=== PATIENT | female | born 1995 | race African-American/Black ===

== ENCOUNTER 2018-06-06 11:24 | Emergency (ER) | payer OTHER ==
[~2018-06-06] VITALS: Ht 165.1 cm; Wt 60.0 kg
[2018-06-06] MEDS ORDERED: DIVA125T2 PO (11:29)
[2018-06-06] MEDS ORDERED: OLANZAPINE 10MG TABLET PO SCH (12:30)
[2018-06-06] MEDS ORDERED: DIVALPROEX SODIUM 250MG ER TABLET PO ONE (12:30)
[2018-06-06 12:43] LABS: CLARITY URINE CLEAR (CLEAR); COLOR URINE YELLOW (YELLOW); KETONES URINE 2+ (NEGATIVE); LEUKOCYTE ESTERASE URINE NEGATIVE (NEGATIVE); NITRITE URINE NEGATIVE (NEGATIVE); OCCULT BLOOD URINE NEGATIVE (NEGATIVE); PROTEIN URINE TRACE (NEGATIVE); SPECIFIC GRAVITY URINE 1.019 (1.005-1.030)
[2018-06-06 12:54] LABS: *AMPHETAMINES SCREEN URINE NEGATIVE (NEGATIVE); *BARBITURATES SCREEN URINE NEGATIVE (NEGATIVE); *BENZODIAZEPINES SCREEN URINE NEGATIVE (NEGATIVE); *COCAINE SCREEN URINE NEGATIVE (NEGATIVE); METHADONE URINE SCREEN NEGATIVE (NEGATIVE)
[2018-06-06 12:55] LABS: OPIATES URINE SCREEN NEGATIVE (NEGATIVE); PHENCYCLIDINE URINE SCREEN NEGATIVE (NEGATIVE)
[2018-06-06] MEDS ORDERED: LORAZEPAM 2MG/ML CPJ IM ONE (13:00)
[2018-06-06] MEDS ORDERED: LORAZEPAM 0.5MG TABLET PO ONE (13:00)
[2018-06-06] MEDS ORDERED: LORAZEPAM 2MG/ML CPJ IM STA (13:03)
[2018-06-06] MEDS ORDERED: DIPHENHYDRAMINE 50MG/ML VIAL IM STA (13:03)
[2018-06-06 13:16] LABS: CANNABINOID URINE SCREEN PRESUMTIVE POSITIVE (NEGATIVE)
[2018-06-06 14:32] LABS: BASOPHILS % 0.9 % (0.0-2.0); EOSINOPHILS % 3.2 % (0.0-5.0); HEMATOCRIT. 39.8 % (36.0-48.0); HEMOGLOBIN. 13.3 g/dL (12.0-16.0); LYMPHOCYTES % 42.2 % (20.0-50.0); MEAN CORPUSCULAR HEMOGLOBIN 29.1 pg (28.0-32.0); MEAN CORPUSCULAR VOLUME 86.9 fL (81.0-99.0); MEAN PLATELET VOLUME 8.3 fl (7.4-10.4); MONOCYTES % 7.9 % (2.0-8.0); NEUTROPHILS % 45.8 % (40.0-76.0); PLATELET 209 x1000/uL (130-400); RED BLOOD CELL COUNT 4.58 mill/uL (4.2-5.4); RED CELL DISTRIBUTION WIDTH 13.9 % (11.6-14.6)
[2018-06-06 14:38] LABS: CHLORIDE 103 mEq/L (98-107)
[2018-06-06 14:49] LABS: HCG SCREEN NEGATIVE
[2018-06-06] MEDS ORDERED: OLANZAPINE 10 MG/VIAL IM ONE (15:45)
[2018-06-06 20:23] LABS: ETHANOL BLOOD < 10 mg/dL
[2018-06-06 20:32] LABS: CARBAMAZEPINE < 0.5 ug/mL (4-12); PHENOBARBITAL < 2.1 ug/mL (15.0-40.0)
[2018-06-07] MEDS ORDERED: SODIUM CHLORIDE 0.9% 1,000 ML IV ONE ×2 (02:22→17:25)
[2018-06-07] MEDS ORDERED: OLANZAPINE 10 MG/VIAL IM ONE (08:15)
[2018-06-08 01:33] VITALS: BP 127/90
== END 2018-06-08 01:51 ==
LOC: ER 12:00
DX: T40.7X1A Poisoning by cannabis (derivatives), accidental (unintentional), initial encounter (principal); T51.0X1A Toxic effect of ethanol, accidental (unintentional), initial encounter; G92 Toxic encephalopathy; R53.1 Weakness; F31.9 Bipolar disorder, unspecified; F12.10 Cannabis abuse, uncomplicated; J45.909 Unspecified asthma, uncomplicated; Z75.1 Person awaiting admission to adequate facility elsewhere; Z78.1 Physical restraint status; Y92.018 Other place in single-family (private) house as the place of occurrence of the external cause
CPT/HCPCS: 36415; 80053; 80156; 80165; 80184; 80185; 80305; 80307; 80329; 81003; 81025; 84443; 84703; 85025; 96372; 99285; G0482; J1200; J2060; J3490; J7030; Z7610; 99284